=== PATIENT | female | born 2000 | race Caucasian/White ===

== ENCOUNTER 2019-10-20 13:00 | Inpatient (IN) | payer BC, MEDICAID ==
[~2019-10-20] VITALS: Ht 160 cm; Wt 74.4 kg
[2019-10-20 14:31] LABS: BASOPHILS # (AUTO) 0.1 K/uL (0.00-0.22); BASOPHILS % (AUTO) 0.5 % (0.0-2.0); EOSINOPHILS # (AUTO) 0.1 K/uL (0-0.4); EOSINOPHILS % (AUTO) 0.4 % (0.0-4.0); HEMATOCRIT 34.2 % (36-48); HEMOGLOBIN 11.5 g/dL (12.0-16.0); LYMPHOCYTES # (AUTO) 2.8 K/uL (2.5-16.5); LYMPHOCYTES % (AUTO) 23.6 % (20.5-51.1); MEAN CORPUSCULAR HEMOGLOBIN 34 pg (27-31); MEAN CORPUSCULAR HGB CONC 34 g/dL (33-37); MEAN CORPUSCULAR VOLUME 102.2 fL (80-94); MONOCYTES % (AUTO) 8.5 % (1.7-9.3); NEUTROPHILS # (AUTO) 7.8 K/uL (1.8-7.7); PLATELET COUNT (AUTO) 208 K/uL (140-450); RED BLOOD CELL COUNT(AUTO) 3.35 MIL/uL (4.20-5.40); WHITE BLOOD COUNT (AUTO) 11.7 K/uL (4.5-11.0)
[2019-10-20 14:40] LABS: APPEARANCE,URINE CLEAR (CLEAR); BILIRUBIN,URINE NEGATIVE (NEGATIVE); BLOOD, URINE 3+ (NEGATIVE); COLOR,URINE YELLOW (YELLOW); LEUKOCYTE ESTERASE ,URINE 2+ (NEGATIVE); NITRITE, URINE NEGATIVE (NEGATIVE); PH,URINE 7.5 (5.0-9.0); UGLUCOSE NEGATIVE (NEGATIVE)
[2019-10-20] MEDS ORDERED: MORPHINE SULFATE 4 MG/ML SYR IVP PRN (14:40)
[2019-10-20 14:54] LABS: BARBITURATE, URINE NEGATIVE ng/ml (NEG <=200); BENZODIAZEPINE, URINE NEGATIVE ng/mL (NEG <=200); CANNABINOID, URINE NEGATIVE ng/mL (NEG <=50); COCAINE, URINE NEGATIVE ng/mL (NEG <=300); OPIATE, URINE NEGATIVE ng/mL (NEG <=2000); PHENCYCLIDINE SCREEN,URINE NEGATIVE ng/mL (NEG <=25)
[2019-10-20 15:02] LABS: RBC,URINE 11-20 (MOD) /HPF (0-5)
[2019-10-20 16:24] VITALS: BP 103/61
[2019-10-20] MEDS: LACTATED RINGERS 1,000 ML IV SCH (22:09)
[2019-10-21] MEDS ORDERED: MORPHINE SULFATE 4 MG/ML SYR IVP PRN (03:10)
[2019-10-21] MEDS ORDERED: MORPHINE SULFATE 10 MG/ML VIAL ONE (03:14)
[2019-10-21 03:22] VITALS: BP 126/72
[2019-10-21] MEDS: LACTATED RINGERS 1,000 ML IV SCH ×4 (05:31→21:01)
[2019-10-21] MEDS ORDERED: MISOPROSTOL 25 MCG TAB VG SCH (08:00)
[2019-10-21] MEDS ORDERED: AMPICILLIN 2,000 MG in NACL 0.9% 100 ML IV SCH (08:30)
[2019-10-21] MEDS ORDERED: AMPICILLIN 2,000 MG VIAL ONE (08:41)
[2019-10-21 09:18] LABS: ALBUMIN 2.4 g/dL (3.4-5.0); ANION GAP 12.8 (8-16); CARBON DIOXIDE 24.7 mmol/L (21-32); CREATININE 0.6 mg/dL (0.6-1.3); POTASSIUM 3.5 mmol/L (3.5-5.1); TOTAL BILIRUBIN 0.4 mg/dL (0.0-1.0)
[2019-10-21] MEDS ORDERED: ONDANSETRON 4 MG/2 ML VIAL IVP PRN (10:00)
[2019-10-21] MEDS ORDERED: AMPICILLIN 1,000 MG in NACL 0.9% 50 ML IV SCH (12:00)
[2019-10-21] MEDS ORDERED: AMPICILLIN 1,000 MG VIAL ONE (12:46)
[2019-10-21] MEDS ORDERED: OXYTOCIN 20 UNITS/LR PREMIX 1,000 ML IV ONE (13:14)
[2019-10-21] MEDS: OXYTOCIN 20 UNITS in LACTATED RINGERS 1,000 ML IV SCH (13:23)
[2019-10-22] MEDS: LACTATED RINGERS 1,000 ML IV SCH ×2 (02:20→09:40)
--- NOTE | 2019-10-22 07:51 | NUR ---
PATIENT HAS BEEN SCREENED AND CATEGORIZED LOW NUTRITION RISK. PATIENT WILL BE SEEN WITHIN 7 DAYS OF ADMISSION. 10/27/19 RONALDO ROBELDO MS, RDN
[2019-10-22] MEDS ORDERED: ROPIVACAINE 0.2%/NS PREMIX 200 ML EPI ONE (12:32)
[2019-10-22] MEDS ORDERED: OXYTOCIN 20 UNITS/LR PREMIX 1,000 ML IV ONE (15:30)
[2019-10-22] MEDS ORDERED: SODIUM PHOSPHATE 118 ML ENEM RC PRN (15:45)
[2019-10-22] MEDS ORDERED: METHYLERGONOVINE 0.2 MG TAB PO PRN (15:45)
[2019-10-22] MEDS ORDERED: METHYLERGONOVINE 0.2 MG/ML AMP IM PRN (15:45)
[2019-10-22] MEDS ORDERED: IBUPROFEN 800 MG TAB PO PRN (15:45)
[2019-10-22] MEDS ORDERED: oxyCODONE/APAP 5/325 MG 1 TAB TAB PO PRN (15:45)
[2019-10-22] MEDS ORDERED: TEMAZEPAM 15 MG CAP PO PRN (15:45)
[2019-10-22] MEDS ORDERED: BENZOCAINE/MENTHOL 20%-0.5% 60 GM CAN TP PRN (15:45)
[2019-10-22] MEDS ORDERED: OXYTOCIN 10 UNITS/ML VIAL IM PRN (15:45)
[2019-10-22] MEDS: OXYTOCIN 20 UNITS in LACTATED RINGERS 1,000 ML IV SCH (16:16)
[2019-10-22] MEDS: HYDROcodone/APAP 5/325 MG 1 TAB TAB PO PRN (17:38)
[2019-10-22] MEDS ORDERED: DOCUSATE SOD/SENNA 50/8.6 MG 1 TAB PO SCH (21:00)
[2019-10-23 06:04] LABS: HEMATOCRIT 29.4 % (36-48); HEMOGLOBIN 10.1 g/dL (12.0-16.0)
[2019-10-23] MEDS: HYDROcodone/APAP 5/325 MG 1 TAB TAB PO PRN (08:22)
[2019-10-24] MEDS: HYDROcodone/APAP 5/325 MG 1 TAB TAB PO PRN (06:05)
== END 2019-10-24 13:45 | disposition home or self-care (01) | DRG 807 ==
LOC: INTOOBSV 13:00 → MFCC 13:00 → OBSVTOIN 10-21 19:24 → MFCC 10-22 18:20
PROVIDERS: ADMIT Obstetrics & Gynecology; ATTEND Obstetrics & Gynecology
PROC: 10D07Z6 Extraction of Products of Conception, Vacuum, Via Natural or Artificial Opening (ICD-10-PCS; principal; 2019-10-22)
PROC: 0HQ9XZZ Repair Perineum Skin, External Approach (ICD-10-PCS; 2019-10-22)
PROC: 3E0234Z Introduction of Serum, Toxoid and Vaccine into Muscle, Percutaneous Approach (ICD-10-PCS; 2019-10-22)
PROC: 10907ZC Drainage of Amniotic Fluid, Therapeutic from Products of Conception, Via Natural or Artificial Opening (ICD-10-PCS; 2019-10-22)
DX: O70.0 First degree perineal laceration during delivery (principal); Z37.0 Single live birth; Z3A.37 37 weeks gestation of pregnancy; Z23 Encounter for immunization
CPT/HCPCS: 36415; 51702; 76815; 80053; 80305; 81001; 85018; 85025; 86592; 86886; 86900; 86901; 87086; 87653-90; 90715; G0378; J0290; J2270; J2405; J2590; J2795; J7120; Q0092

== ENCOUNTER 2021-03-04 18:45 | Observation (INO) | payer MEDICAID ==
[~2021-03-04] VITALS: Ht 160 cm; Wt 83.9 kg
[2021-03-04] MEDS ORDERED: MORPHINE SULFATE 4 MG/ML SYR IM SCH (19:40)
[2021-03-04] MEDS ORDERED: MORPHINE SULFATE 4 MG/ML SYR ONE (19:47)
[2021-03-04 20:06] VITALS: BP 112/69
[2021-03-04] MEDS ORDERED: FERR325E14 PO (20:10)
[2021-03-04] MEDS ORDERED: PNV91TAB8 PO (20:10)
== END 2021-03-04 20:20 | disposition home or self-care (01) ==
LOC: MLD 18:45
PROVIDERS: ADMIT Obstetrics & Gynecology; ATTEND Obstetrics & Gynecology
DX: O26.892 Other specified pregnancy related conditions, second trimester (principal); R10.32 Left lower quadrant pain; Z3A.23 23 weeks gestation of pregnancy
CPT/HCPCS: 59025; 81000; G0378; J2270

== ENCOUNTER 2021-05-30 21:00 | Observation (INO) | payer BC, MEDICAID, SELFPAY ==
[~2021-05-30] VITALS: Ht 160 cm; Wt 86.2 kg
[~2021-05-30 21:00] MED LIST: FERR325E14 PO; PNV91TAB8 PO
== END 2021-05-30 22:20 | disposition home or self-care (01) ==
LOC: MLD 21:00
PROVIDERS: ADMIT Obstetrics & Gynecology; ATTEND Obstetrics & Gynecology
DX: O36.8130 Decreased fetal movements, third trimester, not applicable or unspecified (principal); Z3A.36 36 weeks gestation of pregnancy
CPT/HCPCS: G0378; G0379

== ENCOUNTER 2021-06-18 13:34 | Inpatient (IN) | payer BC, MEDICAID, SELFPAY ==
[~2021-06-18] VITALS: Ht 157.5 cm; Wt 88.5 kg
[2021-06-18] MEDS ORDERED: CARBOPROST 250 MCG/ML AMP IM PRN (13:55)
[2021-06-18] MEDS ORDERED: METHYLERGONOVINE 0.2 MG/ML AMP IM PRN (13:55)
[2021-06-18] MEDS ORDERED: AMPICILLIN 2,000 MG in NACL 0.9% MINI-BAG PLUS 100 ML IV SCH (13:55)
[2021-06-18 14:00] VITALS: BP 96/53
[2021-06-18] MEDS ORDERED: MISOPROSTOL 25 MCG TAB ONE (15:02)
--- NOTE | 2021-06-18 15:07 | NUR ---
DC PLANNING CPS/SW CAROL HERNANDEZ CONTACT [employer] STATING THAT PATIENT HAS A CURRENT CPS CASE OPEN WITH THEM AND WILL LIKE TO MAKE SURE PATIENT IS TESTED FOR SUBSTANCES DURING HER HOSPITALIZATION AT [facility]. PER DERIVATIVES TRADER CAROL HERNANDEZ SHE WANTS TO MAKE SURE THAT PATIENT IS CLEAN AND SOBER TO BE ABLE TO TAKE NEW BORN BABY HOME AFTER HER DISCHARGE. THESE [employer] INFORMED DERIVATIVES TRADER THAT PATIENT WILL BE TESTED AND IF SHE TESTED POSITIVE WITH ANY SUBSTANCES SHE WILL BE GETTING A CALL BY [facility]/ STAFF. DERIVATIVES TRADER AGREED AND ENDED THE CALL.
[2021-06-18 15:21] LABS: BASOPHILS % (AUTO) 0.2 % (0.0-2.0); EOSINOPHILS % (AUTO) 0.4 % (0.0-4.0); HEMATOCRIT 33.9 % (36-48); HEMOGLOBIN 11.5 g/dL (12.0-16.0); LYMPHOCYTES # (AUTO) 1.9 K/uL (2.5-16.5); LYMPHOCYTES % (AUTO) 15.7 % (20.5-51.1); MEAN CORPUSCULAR HEMOGLOBIN 33 pg (27-31); MEAN CORPUSCULAR HGB CONC 34 g/dL (33-37); MEAN CORPUSCULAR VOLUME 97.9 fL (80-94); MONOCYTES # (AUTO) 0.9 K/uL (0.8-1.0); MONOCYTES % (AUTO) 7.8 % (1.7-9.3); NEUTROPHILS # (AUTO) 8.9 K/uL (1.8-7.7); NEUTROPHILS % (AUTO) 75.9 % (42.2-75.2); PLATELET COUNT (AUTO) 244 K/uL (140-450); RED BLOOD CELL COUNT(AUTO) 3.46 MIL/uL (4.20-5.40); RED CELL DISTRIBUTION WIDTH 12.5 % (11.6-13.7); WHITE BLOOD COUNT (AUTO) 11.8 K/uL (4.8-10.8)
[2021-06-18] MEDS: LACTATED RINGERS 1,000 ML IV SCH ×2 (15:30→20:00)
[2021-06-18] MEDS ORDERED: AMPICILLIN 2,000 MG VIAL ONE (17:05)
[2021-06-18 18:06] LABS: BARBITURATE, URINE NEGATIVE ng/ml (NEG <=200); BENZODIAZEPINE, URINE NEGATIVE ng/mL (NEG <=200); CANNABINOID, URINE NEGATIVE ng/mL (NEG <=50); COCAINE, URINE NEGATIVE ng/mL (NEG <=300); OPIATE, URINE NEGATIVE ng/mL (NEG <=2000); PHENCYCLIDINE SCREEN,URINE NEGATIVE ng/mL (NEG <=25)
[2021-06-18 18:23] LABS: APPEARANCE,URINE CLOUDY (CLEAR); BILIRUBIN,URINE NEGATIVE (NEGATIVE); BLOOD, URINE 3+ (NEGATIVE); COLOR,URINE YELLOW (YELLOW); LEUKOCYTE ESTERASE ,URINE 2+ (NEGATIVE); NITRITE, URINE POSITIVE (NEGATIVE); UGLUCOSE NEGATIVE (NEGATIVE)
[2021-06-18 18:57] LABS: RBC,URINE 0-5 /HPF (0-5); WBC,URINE 60-80 /HPF (0-5); YEAST,URINE None Seen /HPF (None Seen)
[2021-06-18 18:58] LABS: CALCIUM OXALATE CRYSTALS,UR None Seen /HPF (None Seen); COARSE GRANULAR CASTS,URINE None Seen /LPF (None Seen); FINE GRANULAR CASTS,URINE None Seen /LPF (None Seen); HYALINE CASTS, URINE None Seen /LPF (None Seen); OTHER CASTS, URINE None Seen /LPF (None Seen); OTHER CRYSTALS,URINE None Seen /HPF (None Seen); RED BLOOD CELL CASTS,URINE None Seen /LPF (None Seen); TRICHOMONAS,URINE None Seen /HPF (None Seen); TRIPLE PHOSPHATE CRYSTAL,UR None Seen /HPF (None Seen); URIC ACID CRYSTALS,URINE None Seen /HPF (None Seen); URINE AMORPHOUS URATE None Seen /HPF (None Seen); WAXY CASTS,URINE None Seen /LPF (None Seen)
[2021-06-18] MEDS ORDERED: PROMETHAZINE 25 MG/ML VIAL IVP PRN (19:45)
[2021-06-18] MEDS ORDERED: MISOPROSTOL 25 MCG TAB VG SCH (20:00)
[2021-06-18] MEDS ORDERED: ROPIVACAINE 0.2%/NS PREMIX 200 ML EPI ONE (20:19)
[2021-06-18] MEDS ORDERED: ROPIVACAINE 0.2%/NS PREMIX 100 ML EPI SCH (20:35)
[2021-06-18] MEDS ORDERED: AMPICILLIN 1,000 MG VIAL ONE (20:52)
[2021-06-18] MEDS: AMPICILLIN 1,000 MG in NACL 0.9% 50 ML IV SCH (21:02)
[2021-06-19] MEDS: LACTATED RINGERS 1,000 ML IV SCH
[2021-06-19] MEDS ORDERED: AMPICILLIN 1,000 MG VIAL ONE ×2 (00:43→04:33)
[2021-06-19] MEDS: AMPICILLIN 1,000 MG in NACL 0.9% 50 ML IV SCH ×2 (01:02→05:00)
[2021-06-19] MEDS ORDERED: OXYTOCIN 20 UNITS/LR PREMIX 1,000 ML IV ONE (07:02)
[2021-06-19] MEDS ORDERED: METHYLERGONOVINE 0.2 MG/ML AMP IM PRN (08:20)
[2021-06-19] MEDS ORDERED: oxyCODONE/APAP 5/325 MG 1 TAB TAB PO PRN (08:20)
[2021-06-19] MEDS ORDERED: METHYLERGONOVINE 0.2 MG TAB PO PRN (08:20)
[2021-06-19] MEDS ORDERED: BENZOCAINE/MENTHOL 20%-0.5% 60 GM CAN TP PRN (08:20)
[2021-06-19] MEDS ORDERED: OXYTOCIN 10 UNITS/ML VIAL IM PRN (08:20)
[2021-06-19] MEDS ORDERED: IBUPROFEN 800 MG TAB PO PRN (08:20)
[2021-06-19] MEDS ORDERED: TEMAZEPAM 15 MG CAP PO PRN (08:20)
--- NOTE | 2021-06-19 09:43 | NUR ---
PATIENT HAS BEEN SCREENED AND CATEGORIZED LOW NUTRITION RISK. PATIENT WILL BE SEEN WITHIN 7 DAYS OF ADMISSION. 06/25/[address]
[2021-06-19] MEDS ORDERED: DOCUSATE SOD/SENNA 50/8.6 MG 1 TAB PO SCH (21:00)
[2021-06-19] MEDS: oxyCODONE/APAP 5/325 MG 1 TAB TAB PO PRN (21:43)
[2021-06-19] MEDS ORDERED: FLU VACCINE QS2021-22 0.5 ML SYR IMVAC ONE (23:00)
[2021-06-20] MEDS: oxyCODONE/APAP 5/325 MG 1 TAB TAB PO PRN (00:37)
[2021-06-20 06:19] LABS: HEMATOCRIT 30.9 % (36-48); HEMOGLOBIN 10.6 g/dL (12.0-16.0)
[2021-06-20] MEDS ORDERED: MULTIVIT/MIN/CA/FE/FA 1 TAB PO SCH (09:00)
[2021-06-20] MEDS ORDERED: FERROUS SULFATE 325 MG TABEC PO SCH (11:30)
== END 2021-06-20 17:15 | disposition home or self-care (01) | DRG 807 ==
LOC: MLD 13:34 → MFCC 06-19 10:55
PROVIDERS: ADMIT Obstetrics & Gynecology; ATTEND Obstetrics & Gynecology
PROC: 3E0P7GC Introduction of Other Therapeutic Substance into Female Reproductive, Via Natural or Artificial Opening (ICD-10-PCS; 2021-06-18)
PROC: 10E0XZZ Delivery of Products of Conception, External Approach (ICD-10-PCS; principal; 2021-06-19)
DX: O36.8130 Decreased fetal movements, third trimester, not applicable or unspecified (principal); Z37.0 Single live birth; Z3A.38 38 weeks gestation of pregnancy; Z20.822 Contact with and (suspected) exposure to COVID-19
CPT/HCPCS: 36415; 51702; 59200; 59409; 80305; 81001; 85018; 85025; 86592; 86886; 86900; 86901; 87086; 87653-90; 90715; J0290; J2590; J2795